=== PATIENT | male | born 1990 | race Caucasian/White ===

== ENCOUNTER 2017-11-16 00:14 | Emergency (ER) | payer SELFPAY ==
[2017-11-16] MEDS ORDERED: NORMAL SALINE 1000 ML 1,000 ML IV ONE (00:23)
[2017-11-16] MEDS ORDERED: ACTIVATED CHARCOAL 25 GM BOTTLE PO ONE (00:23)
[2017-11-16 00:53] LABS: ABSOLUTE LYMPHOCYTES (AUTO) 1.1 10^3/uL (0.5-4.7); ABSOLUTE MONOCYTES (AUTO) 0.7 10^3/uL (0.1-1.4); ABSOLUTE NEUT (AUTO) 6.8 10^3/uL (1.7-8.2); BASOPHILS % (AUTO) 0.6 % (0-2); EOSINOPHILS % (AUTO) 0.3 % (0-6); HEMATOCRIT 46.5 % (37.9-51.0); LYMPHOCYTES % (AUTO) 13.1 % (13-45); MEAN CORPUSCULAR HEMOGLOBIN 28.8 pg (27.0-33.4); MEAN CORPUSCULAR HGB CONC 34.5 g/dL (32.0-36.0); MEAN CORPUSCULAR VOLUME 84 fl (80-97); MONOCYTES % (AUTO) 7.8 % (3-13); PLATELET COUNT 294 10^3/uL (150-450); RED BLOOD COUNT 5.56 10^6/uL (4.35-5.55); RED CELL DISTRIBUTION WIDTH 13.3 % (11.5-14.0); SEGMENTED NEUTROPHILS % (AUTO) 78.2 % (42-78); TOTAL CELLS COUNTED % (AUTO) 100 %; WHITE BLOOD COUNT 8.7 10^3/uL (4.0-10.5)
[2017-11-16 01:09] LABS: ACETAMINOPHEN < 10 ug/mL (10-30); ALANINE AMINOTRANSFERASE 29 U/L (21-72); ALBUMIN 5.1 g/dL (3.5-5.0); ALCOHOL < 10 mg/dL (NONE DETECTED); ALKALINE PHOSPHATASE 85 U/L (38-126); ANION GAP 17 (5-19); ASPARTATE AMINO TRANSFERASE 19 U/L (17-59); BILIRUBIN,DIRECT 0.3 mg/dL (0.0-0.4); BILIRUBIN,TOTAL 1.1 mg/dL (0.2-1.3); BLOOD UREA NITROGEN 20 mg/dL (7-20); CALCIUM 10.5 mg/dL (8.4-10.2); CARBON DIOXIDE 23 mmol/L (22-30); CHLORIDE 102 mmol/L (98-107); GLUCOSE 104 mg/dL (75-110); POTASSIUM 4.3 mmol/L (3.6-5.0); SALICYLATE < 1.0 mg/dL (2.0-20.0); SODIUM 142.3 mmol/L (137-145); TOTAL PROTEIN 8.2 g/dL (6.3-8.2)
[2017-11-16] MEDS ORDERED: NORMAL SALINE 1000 ML 1,000 ML IV PRN (01:35)
[2017-11-16 02:12] LABS: APPEARANCE,URINE SLIGHTLY-CLOUDY; BILIRUBIN,URINE NEGATIVE (NEGATIVE); GLUCOSE, URINE NEGATIVE (NEGATIVE); KETONES,URINE 80 mg/dL (NEGATIVE); LEUKOCYTE ESTERASE,URINE NEGATIVE (NEGATIVE); NITRITE,URINE NEGATIVE (NEGATIVE); PROTEIN,URINE 30 mg/dL (NEGATIVE); URINE SPECIFIC GRAVITY 1.035
[2017-11-16 02:13] LABS: COLOR,URINE YELLOW
[2017-11-16 02:43] LABS: URINE AMPHETAMINES SCREEN NEGATIVE; URINE BARBITURATES SCREEN NEGATIVE; URINE BENZODIAZEPINES SCREEN NEGATIVE; URINE COCAINE SCREEN NEGATIVE; URINE MARIJUANA (THC) SCREEN NEGATIVE; URINE METHADONE SCREEN NEGATIVE; URINE PHENCYCLIDINE SCREEN NEGATIVE
[2017-11-16] MEDS ORDERED: OLANZAPINE 5 MG TAB.RAPDIS PO ONE (03:13)
--- NOTE | 2017-11-16 03:56 | ER Document Report ---
ED Psych Disorder / Suicide - General Mode of Arrival: Ambulatory Information source: Patient TRAVEL OUTSIDE OF THE [place] IN LAST 30 DAYS: No <RENE HOUSE - Last Filed: 11/16/17 03:51> <TED CHAIREZ - Last Filed: 11/16/17 04:25> - General Chief Complaint: Possible Overdose Stated Complaint: SUICIDAL THOUGHTS Time Seen by Provider: 11/16/17 00:19 Notes: Patient is a 27-year-old male who presents to the emergency department today with complaints of suicidal ideation. Patient has not taken his Paxil in approximately 3 days. Patient states he is unsure why he stopped taking this medication. Patient repeats over and over that he "just wants to save his marriage". According to at bedside, patient held a gun to his head stating he wanted to kill himself. Patient states he did this because he wants his back. (RENE HOUSE) Past Medical History - General Information source: Patient - Social History Smoking Status: Unknown if Ever Smoked Chew tobacco use (# tins/day): No Frequency of alcohol use: Rare Drug Abuse: None Lives with: Family Family History: Reviewed & Not Pertinent Patient has suicidal ideation: Yes Patient has homicidal ideation: No - Medical History Medical History: Negative Surgical Hx: Negative <RENE HOUSE - Last Filed: 11/16/17 03:51> Review of Systems - Review of Systems Constitutional: No symptoms reported EENT: No symptoms reported Cardiovascular: No symptoms reported Respiratory: No symptoms reported Gastrointestinal: No symptoms reported Genitourinary: No symptoms reported Male Genitourinary: No symptoms reported Musculoskeletal: No symptoms reported Skin: No symptoms reported Hematologic/Lymphatic: No symptoms reported Neurological/Psychological: See HPI, Depression, Suicidal ideation -: Yes All other systems reviewed and negative <RENE HOUSE - Last Filed: 11/16/17 03:51> Physical Exam <RENE HOUSE - Last Filed: 11/16/17 03:51> <TED CHAIREZ - Last Filed: 11/16/17 04:25> - Vital signs Vitals: Temp 98.7 F 11/16/17 00:21 - Notes Notes: Physical Exam: General: Alert, appears well. HEENT: Normocephalic. Abrasion to forehead. PERRL. Extraocular movements intact. Oropharynx clear. Neck: Supple. Non-tender. Respiratory: No respiratory distress. Clear and equal breath sounds bilaterally. Cardiovascular: Regular rate and rhythm. Abdominal: Normal Inspection. Non-tender. No distension. Normal Bowel Sounds. Back: Non-tender. No deformity or step off. Extremities: Moves all four extremities. Upper extremities: Normal inspection. Normal ROM. Lower extremities: Normal inspection. No edema. Normal ROM. Neurological: Normal cognition. AAOx4. Normal speech. Psychological: Normal affect. Tearful. Psychomotor agitation. Skin: Abrasion over forehead. (RENE HOUSE) Course - Laboratory Result Diagrams: 11/16/17 00:42 11/16/17 00:42 <RENE HOUSE - Last Filed: 11/16/17 03:51> - Laboratory Result Diagrams: 11/16/17 00:42 11/16/17 00:42 <TED CHAIREZ - Last Filed: 11/16/17 04:25> - Re-evaluation Re-evalutation: 11/16/17 04:23 Patient is a 27-year-old male who comes in with suicidal ideation. Patient apparently had a gun that he is going to kill himself with early this week. Patient is also disappeared multiple times this week and apparently has not been eating or drinking for the last 2 days. Patient is tearful in the room. He is medically stable. He will be kept for further evaluation by mental health. Patient is distraught over relationship issues with his . He has been given Zyprexa tonight for sleep. He has been placed on involuntary commitment paperwork. (TED CHAIREZ) - Vital Signs Vital signs: Temp Pulse Resp BP Pulse Ox 98.7 F 11/16/17 00:21 - Laboratory Laboratory results interpreted by me: 11/16/17 11/16/17 11/16/17 00:42 00:42 01:40 RBC 5.56 H Seg Neutrophils % 78.2 H Calcium 10.5 H Albumin 5.1 H Urine Protein 30 H Urine Ketones 80 H Urine Urobilinogen 4.0 H Salicylates < 1.0 L Acetaminophen < 10 L Discharge <RENE HOUSE - Last Filed: 11/16/17 03:51> <TED CHAIREZ - Last Filed: 11/16/17 04:25> - Discharge Clinical Impression: Suicidal ideation Depression Qualifiers: Depression Type: unspecified Qualified Code(s): F32.9 - Major depressive disorder, single episode, unspecified Condition: Stable Disposition: PSYCH HOSP/UNIT Referrals: LAURI JIMENEZ PA [Primary Care Provider] - Follow up as needed Scribe Attestation: 11/16/17 04:25 I personally performed the services described in the documentation, reviewed and edited the documentation which was dictated to the scribe in my presence, and it accurately records my words and actions. (TED CHAIREZ) Scribe Documentation - Scribe Written by Cedric:: Cedric Choi, 11/16/2017 [id number] acting as scribe for :: Susanna <RENE HOUSE - Last Filed: 11/16/17 03:51>
--- NOTE | 2017-11-16 07:54 | EKG REPORT ---
SEVERITY:- NORMAL ECG - SINUS RHYTHM : Confirmed by: Hola Arriola MD 16-Nov-2017 07:53:34
[2017-11-16] MEDS ORDERED: PAROXETINE HCL 20 MG TABLET PO ONE (10:01)
--- NOTE | 2017-11-16 10:03 | ER Document Report ---
Doctor's Note Notes: 11/16/17 10:01 Long discussion with patient. History of depression. Recently stopped taking his Paxil. Has had some suicidal ideations. Apparently put an unloaded gun to his [place] and also had a knife. Threatened to hurt himself. Apparently was in a relationship for 3 years and recently got . Has only been for 2 months. Will have mental health evaluate patient as well. At this time we will give him some Paxil as he has been on that before and it has helped. Mother as well as sisters in the room. Patient seems to have a good support system as well.
--- NOTE | 2017-11-16 14:16 | PSYCHOLOGICAL NOTE ---
Psych Note - Psych Note Psych Note: Reason for Consult: Suicidal ideation, IVC Consent permissions: MotherLiz, Patient is a 27-year-old male who presents to the emergency department today with complaints of suicidal ideation. Patient has not taken his Paxil in approximately 5 days. Patient states he is unsure why he stopped taking this medication. Patient repeats over and over that he "just wants to save his marriage". According to at bedside, patient held a gun to his head stating he wanted to kill himself. Patient states he did this because he wants his back. Patient disclosed he arrived to [facility] via EMS. Patient stated "I tried.... I thought about doing things." When patient was asked to explain he stated that he is having marital difficulties, his of 2 months wants to end their marriage. He continued to state that he got a gun a few days ago but claims he took the bullets out of it (weapon is now back in the possession of its tobacco sweeper, a family member). Last night the patient was found laying down in [place]. Patient continued to state that he is not crazy or "psycho" he has never done anything like this before but "I just could not stop myself... I do not know how to show her I want the marriage to work... I do not act like this." Patient disclosed that he takes Paxil daily however has been approximately 4 days since he is taking his medication which is also unusual for him. Patient continues to ruminate on his wanting to end their marriage stating "it has only been 2 months I do not understand." Patient is alert and orientated to person, place, time and circumstance. Mood is dysphoric with flat affect. Patient endorses suicidal ideation denies intent however confirms little impulse control. Patient denies homicidal ideation. Delusions are absent and behaviors congruent with intact reality based presentation i.e. organized and linear thought processes. Conversational speech was low and difficult to hear at times. Eye contact was poor. Intellectual abilities appear to be within the average range. Attention and concentration was poor. Insight, judgment, impulse control is poor. 311 (F32.9) unspecified depressive disorder V61.10 (6 3.0) relationship to stress with spouse Impression\\plan: Patient is recommended to continue under IVC. Patient discloses suicidal ideation while denying intent confirms he has little in impulse control. Patient is unable to explain why he went into the [place] and [place] down. Patient is having a difficult time concentrating on topics, repeatedly stating his confusion on the his wanting to end their marriage and re-stating that he wants to make it work. Patient is currently danger to himself. Patient will be reevaluated. Dr. Ribera was consulted and the care management this patient; attending physician is in agreement with recommendations and disposition.
[2017-11-16 14:59] VITALS: BP 124/67
== END 2017-11-16 15:15 ==
LOC: ER 00:14
DX: R45.851 Suicidal ideations (principal); F32.9 Major depressive disorder, single episode, unspecified; Z79.899 Other long term (current) drug therapy
CPT/HCPCS: 93005; 99285; 96360; 96361; 36415; 80307 ×4; 85025; 80053; 81001; 93010; J3490 ×2; J7030